=== PATIENT | female | born 1985 | race Caucasian/White ===

== ENCOUNTER → 2023-05-04 | Outpatient (CLI) | payer OTHER ==
[2023-05-04 10:02] LABS: BASO % 0.6 % (0.0-1.0); EOS # 0.3 10^3/uL (0.0-0.5); EOS % 5.1 % (0.0-3.0); HEMATOCRIT 36.9 % (36.0-47.0); HEMOGLOBIN 12.3 g/dl (12.0-15.5); LYMPH # 2.2 10^3/uL (1.5-5.0); LYMPH % 43.4 % (24.0-44.0); MEAN CORPUSCULAR HEMOGLOBIN 30.5 pg (27.0-33.0); MEAN CORPUSCULAR HGB CONC 33.3 g/dl (32.0-36.5); MEAN CORPUSCULAR VOLUME 91.6 fl (80.0-96.0); MONO # 0.3 10^3/uL (0.0-0.8); MONO % 5.7 % (2.0-8.0); NEUTROPHILS # 2.3 10^3/uL (1.5-8.5); PLATELET COUNT, AUTOMATED 312 10^3/uL (150-450); RED BLOOD COUNT 4.03 10^6/uL (4.00-5.40); WHITE BLOOD COUNT 5.1 10^3/uL (4.0-10.0)
[2023-05-04 10:27] LABS: ALBUMIN 3.7 G/DL (3.2-5.2); ALKALINE PHOSPHATASE 73 U/L (46-116); ALT/SGPT 23 U/L (7.0-40); AST/SGOT 13 U/L (<34); BILIRUBIN,TOTAL 0.2 MG/DL (0.3-1.2); BLOOD UREA NITROGEN 16 MG/DL (9-23); CARBON DIOXIDE LEVEL 27 MMOL/L (20-31); CHLORIDE LEVEL 103 MMOL/L (98-107); CREATININE FOR GFR 0.68 MG/DL (0.55-1.30); GLOMERULAR FILTRATION RATE > 60.0 (>60); GLUCOSE, FASTING 84 MG/DL (60-100); POTASSIUM SERUM 4.5 MMOL/L (3.5-5.1); SODIUM LEVEL 135 MMOL/L (136-145); TOTAL PROTEIN 6.9 G/DL (5.7-8.2)
[2023-05-04 10:33] LABS: THYROID STIMULATING HORMONE 2.484 uIU/ML (0.55-4.78)
[2023-05-04 10:35] LABS: VITAMIN B12 LEVEL 1391 PG/ML (211-911)
== END ==
LOC: M LAB 09:08
PROVIDERS: ATTEND Nurse Practitioner Family
DX: Z00.00 Encounter for general adult medical examination without abnormal findings (principal)

== ENCOUNTER → 2023-07-23 | Outpatient (REF) | payer OTHER ==
[2023-07-26 07:09] LABS: HPV APTIMA Negative (Negative)
== END ==
LOC: M SFHCWAGY 12:10
PROVIDERS: ATTEND Nurse Practitioner Family
DX: N93.9 Abnormal uterine and vaginal bleeding, unspecified (principal)
CPT/HCPCS: 87070; 87077; 87186; 87624; G0123

== ENCOUNTER → 2023-08-14 | Outpatient (CLI) | payer OTHER ==
[2023-08-14 10:19] LABS: PERCENT SATURATION 21.7 % (13.2-45.0)
[2023-08-14 10:35] LABS: FERRITIN 66.9 NG/ML (7.3-270.7)
[2023-08-14 10:36] LABS: FREE T4 1.01 NG/DL (0.89-1.76); THYROID STIMULATING HORMONE 1.664 uIU/ML (0.55-4.78)
== END ==
LOC: M LAB 08:46
PROVIDERS: ATTEND Nurse Practitioner Family
DX: N93.9 Abnormal uterine and vaginal bleeding, unspecified (principal)

== ENCOUNTER → 2023-08-14 | Outpatient (CLI) | payer OTHER | LOC: M WHC 07:03 | PROVIDERS: ATTEND Nurse Practitioner Family | DX: N93.9 Abnormal uterine and vaginal bleeding, unspecified (principal) ==

== ENCOUNTER 2024-03-18 06:18 | Day surgery (SDC) | payer OTHER ==
[~2024-03-18] VITALS: Ht 172.7 cm; Wt 91.2 kg
[~2024-03-18 06:18] MED LIST: ALBU8.5H; NORT10CA2 PO; VENL150C43 PO
[2024-03-18 07:07] LABS: HEMATOCRIT 35.6 % (36.0-47.0); HEMOGLOBIN 12.3 g/dl (12.0-15.5); MEAN CORPUSCULAR HEMOGLOBIN 31.2 pg (27.0-33.0); MEAN CORPUSCULAR HGB CONC 34.6 g/dl (32.0-36.5); MEAN CORPUSCULAR VOLUME 90.4 fl (80.0-96.0); PLATELET COUNT, AUTOMATED 260 10^3/uL (150-450); RED BLOOD COUNT 3.94 10^6/uL (4.00-5.40)
[2024-03-18] MEDS ORDERED: MIDAZOLAM INJ 2MG/2ML VIAL As Ordered ONE (07:31)
[2024-03-18] MEDS ORDERED: LIDOCAINE 2% 100MG/5ML SDV (FOR ANES.) As Ordered ONE (07:31)
[2024-03-18] MEDS ORDERED: propofoL 200 MG/20 ML VIAL As Ordered ONE (07:31)
[2024-03-18] MEDS ORDERED: ONDANSETRON 4MG 2ML VIAL As Ordered ONE (07:31)
[2024-03-18] MEDS ORDERED: KETOROLAC 60MG 2ML VIAL As Ordered ONE (07:31)
[2024-03-18] MEDS ORDERED: fentaNYL 100 MCG/2 ML INJECTION As Ordered ONE (07:31)
[2024-03-18] MEDS ORDERED: dexmedeTOMIDine (4MCG/ML)200MCG/50ML BTL (PRECEDEX) As Ordered ONE (07:34)
[2024-03-18] MEDS ORDERED: SEVOFLURANE INHAL SOLN 250 ML BTL As Ordered ONE (08:07)
[2024-03-18] MEDS ORDERED: PHENYLephrine 500MCG 5ML (100MCG/ML) SYRINGE As Ordered ONE (08:20)
[2024-03-18] MEDS ORDERED: ACETAMINOPHEN 1000MG/100ML IV BAG As Ordered ONE (08:23)
[2024-03-18] MEDS ORDERED: NS (Normal Saline) 0.9% 1,000 ML IV SCH (08:25)
[2024-03-18] MEDS: SILVER NITRATE APPLICATOR (1 = QTY 10) As Ordered ONE (08:45)
[2024-03-18] MEDS ORDERED: fentaNYL 100 MCG/2 ML INJECTION IV PRN (09:00)
[2024-03-18] MEDS ORDERED: oxyCODONE 5MG TAB PO PRN (09:00)
[2024-03-18] MEDS: ONDANSETRON 4MG 2ML VIAL IV PRN (09:15)
[2024-03-18 10:00] VITALS: BP 116/68; TEMP 97; O2SAT 98
== END 2024-03-18 10:50 | disposition home or self-care (01) ==
LOC: M SDC 06:18
PROVIDERS: ATTEND Obstetrics & Gynecology
DX: N84.0 Polyp of corpus uteri (principal); N93.9 Abnormal uterine and vaginal bleeding, unspecified; B00.9 Herpesviral infection, unspecified; F41.9 Anxiety disorder, unspecified; F32.A Depression, unspecified; Z79.899 Other long term (current) drug therapy
CPT/HCPCS: 36415; 58558; 81025; 85027; 86850; 86900; 86901; 88305; J0131; J1100; J1885; J2250; J2371; J2405; J3010

== ENCOUNTER 2025-02-01 09:47 | Emergency (ER) | payer OTHER ==
[~2025-02-01] VITALS: Ht 172.7 cm; Wt 66.4 kg
[2025-02-01 10:43] LABS: BASO # 0.0 10^3/uL (0.0-0.2); BASO % 0.3 % (0.0-1.0); EOS # 0.4 10^3/uL (0.0-0.5); EOS % 5.5 % (0.0-3.0); LYMPH # 2.9 10^3/uL (1.5-5.0); LYMPH % 40.0 % (24.0-44.0); MONO # 0.4 10^3/uL (0.0-0.8); MONO % 5.6 % (2.0-8.0); NEUTROPHILS # 3.5 10^3/uL (1.5-8.5); NEUTROPHILS % 48.5 % (36.0-66.0); PLATELET COUNT, AUTOMATED 339 10^3/uL (150-450)
[2025-02-01] MEDS: KETOROLAC 30 MG/ML 1 ML VIAL IV ONE (11:10)
[2025-02-01 11:15] LABS: ALT/SGPT 21 U/L (7.0-40); AST/SGOT 40 U/L (<34); CALCIUM LEVEL 9.0 MG/DL (8.5-10.1); CARBON DIOXIDE LEVEL 24 MMOL/L (20-31); CHLORIDE LEVEL 105 MMOL/L (98-107); CK-MB VALUE MASS 1.9 NG/ML (<3.6); CREATININE FOR GFR 0.73 MG/DL (0.55-1.30); GLOMERULAR FILTRATION RATE > 90.0 (>58); HCG, SERUM QUALITATIVE NEGATIVE (NEGATIVE); POTASSIUM SERUM 4.5 MMOL/L (3.5-5.1); SODIUM LEVEL 138 MMOL/L (136-145)
[2025-02-01 11:17] LABS: CPK CREATINE PHOSPHOKINASE 149 U/L (34-145); MB/CK RELATIVE INDEX 1.27 (< OR =4)
[2025-02-01] MEDS: PANTOPRAZOLE 40MG VIAL IV ONE (12:04)
[2025-02-01 12:42] LABS: CK-MB VALUE MASS 1.5 NG/ML (<3.6)
[2025-02-01 12:44] LABS: CPK CREATINE PHOSPHOKINASE 117 U/L (34-145); MB/CK RELATIVE INDEX 1.28 (< OR =4)
[2025-02-01] MEDS ORDERED: ISOVUE-370 76% 100 ML VIAL As Ordered ONE (13:47)
[2025-02-01] MEDS: MAALOX 30 ML SUSP *UDC PO ONE (15:42)
[2025-02-01] MEDS: LIDOCAINE VISCOUS 2% SOLN 15 ML UDC PO ONE (15:42)
[2025-02-01 16:00] VITALS: BP 153/109
[2025-02-01 16:02] VITALS: TEMP 97.9; O2SAT 100
[2025-02-01] MEDS: MAGNESIUM CITRATE 300 ML BTL PO ONE (16:08)
== END 2025-02-01 16:18 | disposition home or self-care (01) ==
LOC: M ED 09:47
DX: K30 Functional dyspepsia (principal); K59.00 Constipation, unspecified; Z79.899 Other long term (current) drug therapy
CPT/HCPCS: 36415; 74177; 76705; 80047; 80048; 80076; 82550; 82553; 83690; 84484; 84703; 85025; 93005; 93041; 96374; 96375; 99285; J1885; J2470; Q9967